=== PATIENT | male | born 2000 | race Hispanic/Latino ===

== ENCOUNTER 2021-06-25 07:59 | Emergency (ER) | payer OTHER ==
[~2021-06-25] VITALS: Ht 160 cm; Wt 64.4 kg
[2021-06-25 08:02] VITALS: BP 145/69
[2021-06-25] MEDS ORDERED: IBUP-2070 PO (08:53)
[2021-06-25 09:21] VITALS: BP 125/74
== END 2021-06-25 09:35 | disposition home or self-care (01) ==
LOC: EDH 07:59
DX: U07.1 COVID-19 (principal); Z87.19 Personal history of other diseases of the digestive system
CPT/HCPCS: 87635; 99283; C9803